=== PATIENT | male | born 1970 | race Two or more races ===

== ENCOUNTER 2021-05-06 07:15 | Inpatient (IN) | payer OTHER ==
[~2021-05-06] VITALS: Ht 182.9 cm; Wt 97.5 kg
[2021-05-10] MEDS ORDERED: DIAZEPAM5 MG PO (14:39)
[2021-05-10] MEDS ORDERED: NEURONTIN800 MG PO (14:39)
[2021-05-10] MEDS ORDERED: AMOX-CLAV 875-1 EACH PO (14:39)
[2021-05-10] MEDS ORDERED: MEDROLPACK PO (14:39)
[2021-05-10] MEDS ORDERED: COLACE100 MG PO (14:39)
[2021-05-10] MEDS ORDERED: PERCOCET 5-3251 EACH PO (14:39)
== END 2021-05-11 17:09 | disposition home or self-care (01) | DRG 455 ==
LOC: ADM 07:15 → EDSTATUS 05-10 07:15 → CIR.AMB 05-10 07:15 → SURH 05-10 07:15 → O/R 05-10 07:59 → SURH 05-10 17:30 → PED 05-10 20:54
PROVIDERS: ADMIT Orthopaedic Surgery Orthopaedic Surgery of the Spine; ATTEND Orthopaedic Surgery Orthopaedic Surgery of the Spine
PROC: 0SG30J1 Fusion of Lumbosacral Joint with Synthetic Substitute, Posterior Approach, Posterior Column, Open Approach (ICD-10-PCS; 2021-05-10)
PROC: 0ST40ZZ Resection of Lumbosacral Disc, Open Approach (ICD-10-PCS; 2021-05-10)
PROC: 0SP30AZ Removal of Interbody Fusion Device from Lumbosacral Joint, Open Approach (ICD-10-PCS; 2021-05-10)
PROC: 07DR3ZZ Extraction of Iliac Bone Marrow, Percutaneous Approach (ICD-10-PCS; 2021-05-10)
PROC: XRG New Technology, Joints, Fusion (ICD-10-PCS; principal; 2021-05-10 17:30)
DX: M96.0 Pseudarthrosis after fusion or arthrodesis (principal); M54.17 Radiculopathy, lumbosacral region